=== PATIENT | male | born 1980 | race Caucasian/White ===

== ENCOUNTER 2017-09-22 18:01 | Emergency (ER) | payer OTHER ==
[~2017-09-22] VITALS: Wt 95.3 kg
--- NOTE | ~2017-09-22 | EKG ---
[place], [place] ELECTROCARDIOGRAM REPORT NAME: BEATRICE HAMILTON JR UNIT #: [id number] ROOM: DOCTOR: DEANNA SALAZAR MD BIRTHDATE: [birth year] DOS: 09/22/2017 TIME: 1810 hours. FINDINGS: 1. Normal sinus rhythm at 57 beats per minute. 2. The tracing is normal. 3. No previous tracing is available for comparison. DEANNA SALAZAR MD CM:EKGRPT:ELECTROCARDIOGRAM REPORT [id number] DEANNA SALAZAR MD
[~2017-09-22 18:01] MED LIST: VICODIN ES 7501 TAB PO
[2017-09-22 18:40] LABS: BASO % 0.5 % (0.0-1.0); EOS # 0.1 10*3/uL (0.0-0.4); EOS % 1.7 % (1.0-4.0); HEMATOCRIT 43.3 % (42.0-52.0); HEMOGLOBIN 15.3 g/dl (14.0-18.0); LYMPH # 2.1 10*3/uL (1.3-4.4); LYMPH % 27.1 % (27.0-41.0); MEAN CELL VOLUME 86.6 fl (80.0-94.0); MEAN CORPUSCULAR HGB 30.6 pg (27.0-31.0); MEAN CORPUSCULAR HGB CONC 35.3 g/dl (33.0-37.0); MEAN PLATELET VOLUME 9.8 fl (9.6-12.3); MONO # 0.7 10*3/uL (0.1-1.0); MONO % 8.9 % (3.0-9.0); NEUT # 4.8 10*3/uL (2.3-7.9); NEUT % 61.4 % (47.0-73.0); PLATELET COUNT AUTOMATED 221 10*3/uL (130-400); RED CELL DISTRI WIDTH 11.7 % (0-14.5); WHITE BLOOD COUNT 7.7 10*3/uL (4.8-10.8)
[2017-09-22 18:49] LABS: INTERNATIONAL NORM RATIO 0.9 (2.0-3.5)
[2017-09-22 18:57] LABS: ALBUMIN 3.9 gm/dl (3.1-4.5); ALKALINE PHOSPHATASE 64 U/L (45-117); BUN 13 mg/dl (7-24); CHLORIDE 105 mmol/L (98-107); CREATININE 1.06 mg/dL (0.70-1.30); POTASSIUM 3.6 mmol/L (3.5-5.1); SGOT/AST 14 IU/L (3-35); SGPT/ALT 37 U/L (12-78); SODIUM 139 mmol/L (136-145); TOTAL PROTEIN 7.5 gm/dL (6.4-8.2)
[2017-09-22 18:58] LABS: TROPONIN I < 0.015 ng/ml (<0.045)
[2017-09-22] MEDS ORDERED: ZITHROMAX250 MG PO (20:01)
[2017-09-22] MEDS ORDERED: PREDNISONE20 M1 PO (20:01)
== END 2017-09-22 20:15 | disposition home or self-care (01) ==
LOC: ED 18:01
PROVIDERS: Nurse Practitioner Family
DX: J20.9 Acute bronchitis, unspecified (principal); F17.200 Nicotine dependence, unspecified, uncomplicated